=== PATIENT | female | born 1995 | race Caucasian/White ===

== ENCOUNTER 2016-11-03 14:11 | Emergency (ER) | payer SELFPAY ==
[~2016-11-03] VITALS: Ht 154.9 cm; Wt 66.2 kg
[~2016-11-03 14:11] MED LIST: CYCL10TA2 PO; IBUP-1060 PO
[2016-11-03 14:19] VITALS: BP 136/79
--- NOTE | 2016-11-03 14:40 | RAD ---
Indication: Right foot injury. Time of exam 1429 hours. 3 views of the right foot were obtained. The metatarsals appear intact. The phalanges are intact. The midfoot and hindfoot are unremarkable. No fractures are seen. Impression: No acute bony abnormality is detected.
--- NOTE | 2016-11-03 14:41 | RAD ---
Indication: Right ankle injury. Time of exam 1427 hours. Alignment is normal. The ankle mortise is well-maintained. The talar dome is smooth. No fracture or dislocation is seen. Impression: No acute abnormality is detected.
--- NOTE | 2016-11-03 15:22 | PHYS DOC ---
Past Medical History Past Medical History: Other Additional Past Medical Histor: ANGELOEDEMA- AUTOIMMUNE DISEASE Past Surgical History: Other Additional Past Surgical Histo: DENTAL Alcohol Use: None Drug Use: None Adult General Chief Complaint Chief Complaint: ANKLE PROBLEM HPI HPI Patient is a 20 year old female who presents with mild lateral ankle and foot pain that began today after she rolled her ankle. Review of Systems Review of Systems Constitutional: Denies fever or chills [] Eyes: Denies change in visual acuity, redness, or eye pain [] Musculoskeletal: lateral ankle and foot pain Integument: Denies rash or skin lesions [] Neurologic: Denies headache, focal weakness or sensory changes [] Endocrine: Denies polyuria or polydipsia [] Allergies Allergies Allergies Coded Allergies Type Severity Reaction Last Updated Verified Penicillins Allergy Unknown 09/11/15 No Sulfa (Sulfonamide Antibiotics) Allergy Unknown 09/11/15 No clarithromycin Allergy Unknown 09/11/15 No Physical Exam Physical Exam Constitutional: Well developed, well nourished, no acute distress, non-toxic appearance. [] HENT: Normocephalic, atraumatic, bilateral external ears normal, oropharynx moist, no oral exudates, nose normal. [] Skin: Warm, dry, no erythema, no rash. [] Back: No tenderness, no CVA tenderness. [] Extremities: Right ankle and right foot with no obvious deformity. No edema and no ecchymosis. Tenderness on the lateral right ankle. Full range of motion to the right foot and ankle. No pain or tenderness of the navicular bone or the base of the fifth metatarsal of the right foot. +2 right pedal pulse. Cap refill less than 2 seconds the right lower extremity. Neurologic: Alert and oriented X 3, normal motor function, normal sensory function, no focal deficits noted. [] Psychologic: Affect normal, judgement normal, mood normal. [] Current Patient Data Vital Signs Vital Signs Date Time Temp Pulse Resp B/P (MAP) Pulse Ox O2 Delivery O2 Flow Rate FiO2 11/03/16 14:19 98.3 96 16 95 Room Air 98.3 EKG EKG [] Radiology/Procedures Radiology/Procedures []PROCEDURE: FOOT RIGHT 3V Indication: Right foot injury. Time of exam 1429 hours. 3 views of the right foot were obtained. The metatarsals appear intact. The phalanges are intact. The midfoot and hindfoot are unremarkable. No fractures are seen. Impression: No acute bony abnormality is detected. DICTATED and SIGNED BY: MARIO FIGUEREDO MD DATE: 11/03/161436 CC: DERRICK VENTURA APRN; NO PCP; NON,STAFF ~ PROCEDURE: ANKLE RIGHT 3V Indication: Right ankle injury. Time of exam 1427 hours. Alignment is normal. The ankle mortise is well-maintained. The talar dome is smooth. No fracture or dislocation is seen. Impression: No acute abnormality is detected. DICTATED and SIGNED BY: MARIO FIGUEREDO MD DATE: 11/03/161437 CC: DERRICK VENTURA APRN; NO PCP; NON,STAFF ~ Course & Med Decision Making Course & Med Decision Making Pertinent Labs and Imaging studies reviewed. (See chart for details) Patient is in the ED right ankle right foot pain after rolling it today. Right foot and right ankle x-rays interpreted by radiologist are negative for any acute findings. Aircast applied to the right ankle by the soil conservation technician, neurovascular exam done by me is normal. Cap refill <2 seconds. Ice elevation encouraged. Follow-up with ortho in one week. Dragon Disclaimer Dragon Disclaimer This electronic medical record was generated, in whole or in part, using a voice recognition dictation system. Departure Departure Impression: Primary Impression: Right ankle sprain Additional Impression: Right foot sprain Disposition: 01 HOME, SELF-CARE Condition: LEFT WITHOUT BEING SEEN Referrals: NO PCP (PCP) MARTHA CHRISTY MD follow up with the orthopedic doctor in one week Patient Instructions: Ankle Sprain, Foot Sprain-Brief Additional Instructions: You were seen for right ankle and right foot sprain. Ice and elevate the extremity. Wear the air cast as tolerated. Follow-up with the provided orthopedic doctor in one week if pain continues. Take [id number] pain relievers as tolerated. Problem Qualifiers Primary Impression: Right ankle sprain Encounter type: initial encounter Involved ligament of ankle: unspecified ligament Qualified Codes: S93.401A - Sprain of unspecified ligament of right ankle, initial encounter Additional Impression: Right foot sprain Encounter type: initial encounter Qualified Codes: S93.601A - Unspecified sprain of right foot, initial encounter DERRICK VENTURA APRN Nov 03, 2016 15:22
== END 2016-11-03 15:27 | disposition home or self-care (01) ==
LOC: ER 14:11
DX: S93.401A Sprain of unspecified ligament of right ankle, initial encounter (principal); S93.601A Unspecified sprain of right foot, initial encounter; Z88.1 Allergy status to other antibiotic agents; Z88.0 Allergy status to penicillin; Z88.2 Allergy status to sulfonamides; X58.XXXA Exposure to other specified factors, initial encounter; Y93.89 Activity, other specified; Y92.89 Other specified places as the place of occurrence of the external cause; Y99.8 Other external cause status
CPT/HCPCS: 29515; 73610; 73630; 99284-25

== ENCOUNTER 2017-05-12 12:23 | Emergency (ER) | payer SELFPAY ==
[2017-05-12 13:21] LABS: URINE HCG POC HCG NEGATIVE (Negative)
[2017-05-12 13:35] LABS: BILIRUBIN,URINE NEGATIVE (NEG); CLARITY,URINE CLEAR; COLOR,URINE YELLOW; GLUCOSE,URINE NEGATIVE (NEG); NITRITE,URINE NEGATIVE (NEG); PH,URINE 7.5; PROTEIN,URINE NEGATIVE (NEG-TRACE)
[2017-05-12 13:54] LABS: ADD MAN DIFF? NO
[2017-05-12 13:56] LABS: BASO # 0.1 x10^3/uL (0.0-0.2); BASO % 1 % (0-3); EOS # 0.1 x10^3/uL (0.0-0.7); EOS % 2 % (0-3); HEMATOCRIT 35.5 % (36.0-47.0); HEMOGLOBIN 11.9 g/dL (12.0-15.5); LYMPH # 2.1 x10^3/uL (1.0-4.8); LYMPH % 35 % (24-48); MEAN CORPUSCULAR HEMOGLOBIN 28 pg (25-35); MEAN CORPUSCULAR HGB CONC 34 g/dL (31-37); MEAN CORPUSCULAR VOLUME 84 fL (79-100); MONO # 0.3 x10^3/uL (0.0-1.1); MONO % 5 % (0-9); NEUT # 3.4 x10^3uL (1.8-7.7); NEUT % 57 % (31-73); PLATELET COUNT 249 x10^3/uL (140-400); RED BLOOD COUNT 4.22 x10^6/uL (3.50-5.40); RED CELL DISTRIBUTION WIDTH 13.4 % (11.5-14.5)
[2017-05-12 14:06] LABS: HYALINE CASTS, URINE OCCASIONAL /HPF; SQUAMOUS EPITHELIAL CELL,UR FEW /LPF
[2017-05-12 14:07] LABS: BACTERIA,URINE 0 /HPF (0-FEW); RBC,URINE RARE /HPF (0-2); WBC,URINE RARE /HPF (0-4)
[2017-05-12 14:19] LABS: ANION GAP 11 (6-14); BLOOD UREA NITROGEN 11 mg/dL (7-20); CALCIUM 9.2 mg/dL (8.5-10.1); CARBON DIOXIDE 29 mmol/L (21-32); CHLORIDE 101 mmol/L (98-107); CREATININE 0.7 mg/dL (0.6-1.0); GFR 105.6; GLUCOSE 89 mg/dL (70-99); POTASSIUM 4.1 mmol/L (3.5-5.1); SODIUM 141 mmol/L (136-145)
[2017-05-12 14:24] LABS: ALBUMIN 3.8 g/dL (3.4-5.0); ALK PHOS 56 U/L (46-116); ALT (SGPT) 43 U/L (14-59); AST (SGOT) 38 U/L (15-37); DIRECT BILIRUBIN 0.1 mg/dL (0.0-0.2); TOTAL BILIRUBIN 0.3 mg/dL (0.2-1.0); TOTAL PROTEIN 8.1 g/dL (6.4-8.2)
[2017-05-12] MEDS: ONDANSETRON PF 4 MG/2 ML VIAL. IV (15:29)
[2017-05-13 05:46] LABS: NEGATIVE OBC STREP NEG; POSITIVE OBC STREP POS
== END 2017-05-12 16:13 | disposition home or self-care (01) ==
LOC: ER 12:23
DX: J32.9 Chronic sinusitis, unspecified (principal); Z88.0 Allergy status to penicillin; Z88.2 Allergy status to sulfonamides; Z88.1 Allergy status to other antibiotic agents
CPT/HCPCS: 36415; 80048; 80076; 81001; 81025; 85025; 87070; 87086; 87880; 96374; 99284-25; J2405

== ENCOUNTER → 2017-11-17 | Outpatient (CLI) | payer OTHER | END | disposition home or self-care (01) | LOC: KCIC MRI 09:50 | DX: M25.531 Pain in right wrist (principal); J32.9 Chronic sinusitis, unspecified | CPT/HCPCS: 73221 ==

== ENCOUNTER 2019-04-14 22:44 | Emergency (ER) | payer SELFPAY ==
[~2019-04-14] VITALS: Ht 157.5 cm; Wt 86.3 kg
[~2019-04-14 22:44] MED LIST changes: +AZIT250T6 PO; +ONDA4TAB10 SL
[2019-04-15] MEDS ORDERED: LIDO:MAALOX 1:1 20 ML SINGLE DOSE. SWSW ONE (00:30)
[2019-04-15] MEDS ORDERED: ONDANSETRON ODT 4 MG TAB.RAPDIS. PO ONE (00:30)
[2019-04-15] MEDS ORDERED: FAMOTIDINE 20 MG TABLET. PO ONE (00:30)
[2019-04-15] MEDS ORDERED: FAMO-63 PO (01:34)
[2019-04-15] MEDS ORDERED: ONDA4TAB7 PO (01:34)
[2019-04-15] MEDS ORDERED: SUCR1TAB35 PO (01:34)
[2019-04-15 01:46] VITALS: BP 124/89
--- NOTE | 2019-04-15 04:30 | PHYS DOC ---
Past Medical History Past Medical History: No Pertinent History Additional Past Medical Histor: ANGELOEDEMA- AUTOIMMUNE DISEASE Past Surgical History: No Surgical History Additional Past Surgical Histo: DENTAL Alcohol Use: None Drug Use: None Adult General Chief Complaint Chief Complaint: ABDOMINAL PAIN HPI HPI Patient is a 23 year old female who presents with epigastric pain intermittent 2 days worse with eating. Patient states pain is sharp and starts 20-30 minutes after eating. Pain is not radiating to the back. Patient also reports nausea without vomiting. No hematemesis coffee-ground emesis. Reports stools. No urinary frequency urgency burning. Fever chills or sweats. No other acute symptoms or complaints. Patient took Pepto-Bismol prior to ED arrival with partial relief of symptoms[] Review of Systems Review of Systems Review symptoms as per history of present illness. All other review symptoms are negative All other systems were reviewed and found to be within normal limits, except as documented in this note. Current Medications Current Medications Current Medications Medications (Trade) Dose Ordered Sig/Charles Start Time Stop Time Status Last Admin Dose Admin Famotidine (Pepcid) 20 mg 1X ONCE 04/15/19 00:30 04/15/19 00:31 DC 04/15/19 00:28 20 MG Multi-Ingredient Mouthwash/Gargle (Gi Cocktail) 20 ml 1X ONCE 04/15/19 00:30 04/15/19 00:31 DC 04/15/19 00:28 20 ML Ondansetron HCl (Zofran Odt) 4 mg 1X ONCE 04/15/19 00:30 04/15/19 00:31 DC 04/15/19 00:28 4 MG Allergies Allergies Allergies Coded Allergies Type Severity Reaction Last Updated Verified Penicillins Allergy Unknown 09/11/15 No Sulfa (Sulfonamide Antibiotics) Allergy Unknown 09/11/15 No clarithromycin Allergy Unknown 09/11/15 No Physical Exam Physical Exam Constitutional: Well developed, well nourished, no acute distress, non-toxic appearance. [] HENT: Normocephalic, atraumatic, bilateral external ears normal, oropharynx moist, no oral exudates, nose normal. [] Eyes: PERRLA, EOMI, conjunctiva normal, no discharge. [] Neck: Normal range of motion, no tenderness, supple, no stridor. [] Cardiovascular:Heart rate regular rhythm, no murmur [] Lungs & Thorax: Bilateral breath sounds clear to auscultation [] Abdomen: Bowel sounds normal, soft, epigastric pain, tenderness, negative Reddy sign no pulsatile masses. [] Skin: Warm, dry, no erythema, no rash. [] Back: No tenderness, no CVA tenderness. [] Extremities: No tenderness, no cyanosis, no clubbing, ROM intact, no edema. [] Neurologic: Alert and oriented X 3, normal motor function, normal sensory function, no focal deficits noted. [] Psychologic: Affect normal, judgement normal, mood normal. [] Current Patient Data Vital Signs Vital Signs Date Time Temp Pulse Resp B/P (MAP) Pulse Ox O2 Delivery O2 Flow Rate FiO2 04/15/19 01:46 98.3 89 16 124/89 (101) 98 Room Air 98.3 Lab Values Laboratory Tests Test 04/14/19 22:57 POC Urine HCG, Qualitative Hcg negative (Negative) EKG EKG [] Radiology/Procedures Radiology/Procedures [] Course & Med Decision Making Course & Med Decision Making Pertinent Labs and Imaging studies reviewed. (See chart for details) [Symptomatic with Pepcid and GI cocktail with care with PCP follow-up.] Dragon Disclaimer Dragon Disclaimer This electronic medical record was generated, in whole or in part, using a voice recognition dictation system. Departure Departure Impression: Primary Impression: Acute gastritis without bleeding Disposition: HOME, SELF-CARE Condition: GOOD Patient Instructions: Gastritis, Adult, [id number] Additional Instructions: Please take newly prescribed medications as directed. Drink clear liquids only for the next 12 hours then gradually increase to soft bland diet as tolerated. Follow-up with your PCP in 2-3 days for reevaluation if symptoms persist. Return to the ED if new or worsening symptoms. Scripts Sucralfate (CARAFATE) 1 Gm Tablet 1 TAB PO QID for 10 Days, #40 TAB 0 Refills Prov: LYLY BONILLA DO 04/15/19 Ondansetron Hcl (ZOFRAN) 4 Mg Tablet 1 TAB PO Q6HRS, #10 TAB 0 Refills Prov: LYLY BONILLA DO 04/15/19 Famotidine (PEPCID) 20 Mg Tablet 20 MG PO BID, #20 TAB Prov: LYLY BONILLA DO 04/15/19 LYLY BONILLA DO Apr 15, 2019 04:30
== END 2019-04-15 01:45 | disposition home or self-care (01) ==
LOC: ER 22:44
DX: K29.00 Acute gastritis without bleeding (principal); R11.0 Nausea; Z98.890 Other specified postprocedural states
CPT/HCPCS: 81025; 99284; Q0162

== ENCOUNTER 2020-03-30 10:55 | Emergency (ER) | payer BC ==
[~2020-03-30] VITALS: Ht 157.5 cm; Wt 100.0 kg
[~2020-03-30 10:55] MED LIST changes: +FAMO-63 PO; +ONDA4TAB7 PO; +SUCR1TAB35 PO
[2020-03-30] MEDS ORDERED: IV NORMAL SALINE 1000ML BAG 1,000 ML IV ONE (11:30)
--- NOTE | 2020-03-30 11:32 | ED.ADGEN ---
Past Medical History Past Medical History: No Pertinent History Additional Past Medical Histor: ANGELOEDEMA- AUTOIMMUNE DISEASE Past Surgical History: No Surgical History Additional Past Surgical Histo: DENTAL Smoking Status: Never Smoker Alcohol Use: None Drug Use: None General Adult EDM: Chief Complaint: AMENORRHEA HPI: HPI: Patient is a 24 year old female who presents to the emergency department with complaints of heavy vaginal bleeding for the last 3 days. Patient states that she was seen at [facility] yesterday but they did not do anything for her. She states that she feels dizzy at times but denies any syncope. Patient denies any fever, cough, shortness of breath, abdominal pain, nausea, vomiting, diarrhea, back pain, body aches, or fatigue. She denies any irregular vaginal discharge prior to the onset of menstrual bleeding. Patient denies any contraceptive use. She reports that she has saturated 6 tampons/pads since m idnight. She denies any pain. Review of Systems: Review of Systems: Complete ROS is negative unless otherwise noted in HPI. Current Medications: Current Medications Medications (Trade) Dose Ordered Sig/Charles Start Time Stop Time Status Last Admin Dose Admin Ibuprofen (Motrin) 800 mg 1X ONCE 03/30/20 11:45 03/30/20 11:46 DC 03/30/20 12:17 800 MG Sodium Chloride 1,000 ml @ 1,000 mls/hr 1X ONCE 03/30/20 11:30 03/30/20 12:29 DC Allergies: Allergies: Allergies Coded Allergies Type Severity Reaction Last Updated Verified Penicillins Allergy Unknown 09/11/15 No Sulfa (Sulfonamide Antibiotics) Allergy Unknown 09/11/15 No clarithromycin Allergy Unknown 09/11/15 No Physical Exam: PE: See Above Constitutional: Well developed, well nourished, no acute distress, non-toxic appearance, obese. [] HENT: Normocephalic, atraumatic, bilateral external ears normal, nose normal. [] Eyes: PERRLA, EOMI, conjunctiva normal, no discharge. [] Neck: Normal range of motion, no stridor. [] Cardiovascular:Heart rate regular rhythm Lungs & Thorax: Respirations even and unlabored, no retractions, no respiratory distress Abdomen: soft, no tenderness Skin: Warm, dry, no erythema, no rash. [] Extremities: No cyanosis, ROM intact, no edema. [] Neurologic: Alert and oriented X 3, no focal deficits noted. [] Psychologic: Affect normal, judgement normal, mood normal. [] Current Patient Data: Labs: Laboratory Tests Test 03/30/20 11:12 03/30/20 11:17 POC Urine HCG, Qualitative Hcg negative (Negative) White Blood Count 6.2 x10^3/uL (4.0-11.0) Red Blood Count 3.94 x10^6/uL (3.50-5.40) Hemoglobin 9.0 g/dL (12.0-15.5) L Hematocrit 28.3 % (36.0-47.0) L Mean Corpuscular Volume 72 fL (79-100) L Mean Corpuscular Hemoglobin 23 pg (25-35) L Mean Corpuscular Hemoglobin Concent 32 g/dL (31-37) Red Cell Distribution Width 19.4 % (11.5-14.5) H Platelet Count 360 x10^3/uL (140-400) Neutrophils (%) (Auto) 56 % (31-73) Lymphocytes (%) (Auto) 35 % (24-48) Monocytes (%) (Auto) 6 % (0-9) Eosinophils (%) (Auto) 2 % (0-3) Basophils (%) (Auto) 1 % (0-3) Neutrophils # (Auto) 3.5 x10^3/uL (1.8-7.7) Lymphocytes # (Auto) 2.2 x10^3/uL (1.0-4.8) Monocytes # (Auto) 0.3 x10^3/uL (0.0-1.1) Eosinophils # (Auto) 0.1 x10^3/uL (0.0-0.7) Basophils # (Auto) 0.1 x10^3/uL (0.0-0.2) Platelet Estimate Pending Laboratory Tests 03/30/20 11:17 Vital Signs: Vital Signs Date Time Temp Pulse Resp B/P (MAP) Pulse Ox O2 Delivery O2 Flow Rate FiO2 03/30/20 13:25 92 18 165/78 (107) 98 Room Air 03/30/20 11:10 99.0 99.0 EKG: EKG: [] Heart Score: Risk Factors: Risk Factors: DM, Current or recent (<one month) smoker, HTN, HLP, family history of CAD, obesity. Risk Scores: Score 0 - 3: 2.5% MACE over next 6 weeks - Discharge Home Score 4 - 6: 20.3% MACE over next 6 weeks - Admit for Clinical Observation Score 7 - 10: 72.7% MACE over next 6 weeks - Early Invasive Strategies Radiology/Procedures: Radiology/Procedures: 1310- Spoke with Dr. Dickerson and advised of pt's hemoglobin. Plan is to have patient start taking 800 mg of ibuprofen q6h and follow up with Dr. Dickerson's office this week. Dr. Dickerson is in agreement with POC will have patient call the office tomorrow to arrange follow up. Prescription written for ibuprofen 800 mg q6h. Pt instructed to call Dr. Dickerson's office in the morning to schedule follow up. VSS, pt encouraged to return to the ER if she begins to saturate more than 1 pad an hour or worsening symptoms Pt verbalized an understanding of home care, medications, follow-up, and return to ED instructions and was in agreement with the plan of care. [] Course & Med Decision Making: Course & Med Decision Making Pertinent Labs and Imaging studies reviewed. (See chart for details) []I have reviewed the PA/CHROMOSOMAL DISORDERS COUNSELOR's note and Plan of Care. I was available for consultation as needed during the patient's visit in the emergency department. I agree with the clinical impression, plans and disposition. Laon Disclaimer: Donnie Disclaimer: This electronic medical record was generated, in whole or in part, using a voice recognition dictation system. Departure Departure Impression: Primary Impression: Heavy menstrual bleeding Disposition: 01 DC HOME SELF CARE/HOMELESS Condition: STABLE Referrals: RADHA BENDER MD Patient Instructions: Menorrhagia, [id number] Additional Instructions: Fill the prescription and take as directed with food. Call Dr. Dickerson's office in the morning for follow up appointment. Return to the ER if you begin to saturate more than 1 pad/tampon per hour or if symptoms worsen. Scripts Ibuprofen (IBUPROFEN) 800 Mg Tablet 800 MG PO Q6HRS for 5 Days, #20 TAB 0 Refills Prov: PONCHO VENEGAS APRN 03/30/20 Problem Qualifiers Primary Impression: Heavy menstrual bleeding Menorrhagia type: with regular cycle Qualified Codes: N92.0 - Excessive and frequent menstruation with regular cycle PONCHO VENEGAS APRN Mar 30, 2020 11:32 REBECA CARDOSO MD Mar 30, 2020 13:44
[2020-03-30] MEDS ORDERED: IBUPROFEN 400 MG TABLET. PO ONE (11:45)
[2020-03-30 12:15] LABS: BASO # 0.1 x10^3/uL (0.0-0.2); BASO % 1 % (0-3); EOS # 0.1 x10^3/uL (0.0-0.7); EOS % 2 % (0-3); HEMATOCRIT 28.3 % (36.0-47.0); LYMPH # 2.2 x10^3/uL (1.0-4.8); LYMPH % 35 % (24-48); MEAN CORPUSCULAR HEMOGLOBIN 23 pg (25-35); MEAN CORPUSCULAR HGB CONC 32 g/dL (31-37); MEAN CORPUSCULAR VOLUME 72 fL (79-100); MONO # 0.3 x10^3/uL (0.0-1.1); MONO % 6 % (0-9); NEUT # 3.5 x10^3/uL (1.8-7.7); NEUT % 56 % (31-73); PLATELET COUNT 360 x10^3/uL (140-400); RED BLOOD COUNT 3.94 x10^6/uL (3.50-5.40); RED CELL DISTRIBUTION WIDTH 19.4 % (11.5-14.5); WHITE BLOOD COUNT 6.2 x10^3/uL (4.0-11.0)
[2020-03-30] MEDS ORDERED: IBUP-1060 PO (13:17)
[2020-03-30 13:25] VITALS: BP 165/78
[2020-03-30 13:53] LABS: ANISOCYTOSIS SLIGHT; HYPOCHROMIA MOD; MICROCYTOSIS MOD; OVALOCYTES FEW; PLT ESTIMATE ADEQUATE (ADEQUATE); POIKILOCYTOSIS SLIGHT
== END 2020-03-30 13:25 | disposition home or self-care (01) ==
LOC: ER 10:55
DX: N93.9 Abnormal uterine and vaginal bleeding, unspecified (principal); R42 Dizziness and giddiness; Z98.890 Other specified postprocedural states; Z88.0 Allergy status to penicillin; Z88.1 Allergy status to other antibiotic agents; Z88.2 Allergy status to sulfonamides
CPT/HCPCS: 36415; 81025; 85025; 99283

== ENCOUNTER 2020-10-04 07:43 | Emergency (ER) | payer SELFPAY ==
[~2020-10-04] VITALS: Ht 157.5 cm; Wt 77.3 kg
[2020-10-04 08:36] VITALS: BP 139/79
[2020-10-04] MEDS ORDERED: LIDOCAINE (700MG/PATCH) PATCH. TD ONE (09:00)
--- NOTE | 2020-10-04 09:03 | PHYS DOC ---
Past Medical History Past Medical History: No Pertinent History Additional Past Medical Histor: ANGELOEDEMA- AUTOIMMUNE DISEASE Past Surgical History: No Surgical History Additional Past Surgical Histo: DENTAL Smoking Status: Never Smoker Alcohol Use: None Drug Use: None General Adult EDM: Chief Complaint: FOOT INJURY PAIN HPI: HPI: 24-year-old female past medical history of menorrhagia, presents the ED with complaints of right lateral ankle pain that started spontaneously this morning. Patient cannot recall any blunt injury, trauma or overuse. Is wearing brand-new structures with arch support. Works that [employer] and stands primarily. Does report history of frequent ankle sprains but no ankle fractures. No associated pain at the knee or hip. Pain is described as sharp and tender, is localized and nonradiating. It hurts to bear weight and is using crutches. Reports she had a spa pedicure last night at 6pm but does not recall any bleeding or specific trauma. Review of Systems: Review of Systems: Constitutional: Denies fever or chills. [] Eyes: Denies change in visual acuity. [] HENT: Denies nasal congestion or sore throat. [] Respiratory: Denies cough or shortness of breath. [] Cardiovascular: Denies chest pain or edema. [] GI: Denies abdominal pain, nausea, vomiting, bloody stools or diarrhea. [] : Denies dysuria or hematuria Musculoskeletal: Denies back pain or cva ttp Integument: Denies rash or diaphoresis Neurologic: Denies headache, focal weakness or sensory changes. [] Endocrine: Denies polyuria or polydipsia. [] Lymphatic: Denies swollen glands. [] Psychiatric: Denies depression or anxiety. [] Heart Score: C/O Chest Pain: No Risk Factors: Risk Factors: DM, Current or recent (<one month) smoker, HTN, HLP, family history of CAD, obesity. Risk Scores: Score 0 - 3: 2.5% MACE over next 6 weeks - Discharge Home Score 4 - 6: 20.3% MACE over next 6 weeks - Admit for Clinical Observation Score 7 - 10: 72.7% MACE over next 6 weeks - Early Invasive Strategies Current Medications: Current Medications Medications (Trade) Dose Ordered Sig/Charles Start Time Stop Time Status Last Admin Dose Admin Lidocaine (Lidoderm) 1 patch 1X ONCE 10/04/20 09:00 10/04/20 09:01 Allergies: Allergies: Allergies Coded Allergies Type Severity Reaction Last Updated Verified Penicillins Allergy Unknown 09/11/15 No Sulfa (Sulfonamide Antibiotics) Allergy Unknown 09/11/15 No clarithromycin Allergy Unknown 09/11/15 No Physical Exam: PE: Constitutional: Well developed, well nourished, no acute distress, non-toxic appearance. HENT: Normocephalic, atraumatic, Eyes: EOMI, conjunctiva normal, no discharge. Neck: Normal range of motion, supple, Cardiovascular: S1/2 present, regular rhythm Lungs & Thorax: Speaking in full sentences, bilateral equal chest rise, no tachypnea or increased work of breathing Abdomen: soft, no tenderness, Skin: Warm, dry, no erythema, no rash, no soft tissue swelling Back: No midline tenderness, no CVA tenderness. [] Extremities: No cyanosis, no lower extremity edema, equal dp/pt pulses, no bruits we will refer to metatarsal joint, no pain ankle/malleoli/phalanges/knee/fibular head/hip, no deformity Neurologic: Alert and oriented X 3, normal motor function, normal sensory function, no focal deficits noted. [] Psychologic: Affect normal, judgement normal, mood normal. [] Current Patient Data: Vital Signs: Vital Signs Date Time Temp Pulse Resp B/P (MAP) Pulse Ox O2 Delivery O2 Flow Rate FiO2 10/04/20 08:36 98.0 98 18 139/79 (99) 99 Room Air 98.0 EKG: EKG: [] Radiology/Procedures: Radiology/Procedures: []IMAGING REPORT Signed PATIENT: HILLARY BECK ACCOUNT: [id number] : 1995 LOCATION: ER AGE: 24 SEX: F EXAM STATUS: REG ER ORD. PHYSICIAN: ELMO ARELLANO DO REASON: right outer foot pain s/p pedicure PROCEDURE: FOOT RIGHT 3V Study: XR FOOT_RIGHT 3 VIEWS Indication: Foot pain. Comparison: 11/03/2016 Findings: No fracture or malalignment. Maintained joint spaces. No retained radiopaque foreign body. Impression: No acute osseous abnormality. No retained radiopaque foreign body. Electronically signed by: DAPHNE ROBERTSON MD (10/04/2020 9:04 AM) [id number] DICTATED and SIGNED BY: DAPHNE ROBERTSON MD DATE: 10/04/20 [id number] 0 Course & Med Decision Making: Course & Med Decision Making Pertinent Labs and Imaging studies reviewed. (See chart for details) Concern for atraumatic right fifth metatarsal tenderness with no pain at the ankle, toes, knee or hip. Stress fracture possible, neuropathy on differential. Will treat conservatively with RICE, crutches and splint -no weightbearing until pain has resolved. Will discharge home with strict ED return precautions were given for severe pain (compartment syndrome return precautions), neurologic deficits or repeat injury. Encouraged urgent outpatient follow-up with PMD and Ortho/podiatry for definitive management. Life-threatening processes were considered but are low suspicion at this time, given history, physical exam and ED workup. Pt was educated on all prescription medications and adverse effects. All patient's and her mother's questions were answered and pt was stable at time of discharge. Life/limb-threatening differential includes but is not limited to, avascular necrosis, septic arthritis, malignancy, compartment syndrome, fract ure/ligamentous injury/overuse, decompression sickness, seronegative spondyloarthropathies, trauma including dislocation/fracture, Lyme disease, lupus, arthritis differentials, gout/pseudogout or decompression sickness. I spoken with the patient and her caregivers-patient's mother at bedside per patient's consent. I explained the patient's condition, diagnoses and treatment plan based on the information available to me at this time. I have answered the patient and her caregiver's questions and addressed any concerns. The patient and her caregivers have a good understanding of patient's diagnosis, condition and treatment plan as can be expected at this point. Vital signs have been stable. Patient's condition is stable and appropriate for discharge from the emergency department. Patient will pursue further outpatient evaluation with primary care physician or other designated or consulting physician as outlined in the discharge instructions. The patient and/or caregivers are agreeable to this plan of care and follow-up instructions have been explained in detail. The patient and/or caregivers have received these instructions in written form and have expressed an understanding of the discharge instructions. The patient and/or caregivers are aware that any significant change of condition or worsening of symptoms should prompt immediate return to this or the closest emergency department or call to 1. Donnie Disclaimer: Donnie Disclaimer: This electronic medical record was generated, in whole or in part, using a voice recognition dictation system. Departure Departure Impression: Primary Impression: Right foot pain Disposition: HOME / SELF CARE / HOMELESS Condition: STABLE Referrals: NO PCP (PCP) Follow-up with your primary care physician for routine care or FOLLOW UP WITH FAMILY MEDICINE: [address] [place] [address] Patient Instructions: Joint Sprain, Metatarsal Stress Fracture, RICE - Routine Care for Injuries Additional Instructions: FOLLOW UP WITH ORTHOPEDICS: For definitive management or persistent pain in 7 to 10 days Orthopaedic Sports Medicine Orthopaedic Surgery [facility] [address] [facility] [place], [facility] [address] [place] [address] OR [facility] [address] [place] [address] OR FOLLOW UP WITH PODIATRY: Podiatric Surgery [address] [address] [place] [address] EMERGENCY DEPARTMENT GENERAL DISCHARGE INSTRUCTIONS Thank you for coming to [facility] Emergency Department (ED) today and trusting us with you care. We trust that you had a positive experience in our Emergency Department. If you wish to speak to the department management, you may call the Director at [phone]. YOUR FOLLOW UP INSTRUCTIONS ARE FOLLOWS: 1. Do you have a private Doctor? If you do not have a private doctor, please ask for a resource list of physicians or clinics that may be able to assist you with follow up care. 2. The Emergency Physicain has interpreted your x-rays. The X-Ray specialist will also review them. If there is a change in the findings, you will be notified in 48 hours when at all possible. 3. A lab test or culture has been done, your results will be reviewed and you will be notified if you need a change in treatment. ADDITIONAL INSTRUCTIONS AND INFORMATION: 1. Your care today has been supervised by a physician who is specially trained in emergency care. Many problems require more than one evaluation for a complete diagnosis and treatment. We recommend that you schedule your follow up appointment as recommended to ensure complete treatment of you illness or injury. If you are unable to obtain follow up care and continue to have a problem, or if your condition worsens, we recommend that you return to the ED. 2. We are not able to safely determine your condition over the phone nor are we able to give sound medical advice over the phone. For these safety reasons, if you call for medical advice we will ask you to come to the ED for further evaluation. 3. If you have any questions regarding these discharge instructions please call the ED at [phone]. SAFETY INFORMATION: In the interest of safety, wellness, and injury prevention; we encourage you to wear your sealbelt, if you smoke; quite smoking, and we encourage family to use a protective helmet for bicycling and other sporting events that present an increased risk for head injury. IF YOUR SYMPTOMS WORSEN OR NEW SYMPTOMS DEVELOP, OR YOU HAVE CONCERNS ABOUT YOUR CONDITION; OR IF YOUR CONDITION WORSENS WHILE YOU ARE WAITING FOR YOUR FOLLOW UP APPOINTMENT; EITHER CONTACT YOUR PRIMARY CARE DOCTOR, THE PHYSICIAN WHOSE NAME AND NUMBER YOU WERE GIVEN, OR RETURN TO THE ED IMMEDIATELY. ELMO DALY DO October 04, 2020 09:03
--- NOTE | 2020-10-04 09:06 | RAD ---
Study: XR FOOT_RIGHT 3 VIEWS Indication: Foot pain. Comparison: 11/03/2016 Findings: No fracture or malalignment. Maintained joint spaces. No retained radiopaque foreign body. Impression: No acute osseous abnormality. No retained radiopaque foreign body. Electronically signed by: DAPHNE ROBERTSON MD (10/04/2020 9:04 AM) [id number]
== END 2020-10-04 09:36 | disposition home or self-care (01) ==
LOC: ER 07:43
DX: M79.671 Pain in right foot (principal); Z88.0 Allergy status to penicillin; Z88.1 Allergy status to other antibiotic agents; Z88.2 Allergy status to sulfonamides
CPT/HCPCS: 73630; 99283